=== PATIENT | female | born 1960 | race Caucasian/White ===

== ENCOUNTER 2017-07-30 08:52 | Emergency (ER) | payer BC ==
[2017-07-30] MEDS ORDERED: Nitroglycerin 2% Oint 1 GM UD Packet TOP ONE (09:19)
--- NOTE | 2017-07-30 09:31 | EDM.PDOC ---
ED HPI GENERAL MEDICAL PROBLEM - General Stated Complaint: DIZZY/LIGHT HEADED Time Seen by Provider: 07/30/17 09:08 - History of Present Illness INITIAL COMMENTS - FREE TEXT/NARRATIVE: Patient presents to emergency room this morning with complaints of dizziness, not feeling well. Did have a lower tooth pulled on the left side yesterday recently finished a dose of clindamycin. Her symptoms are otherwise pretty vague. She has low grade fever, vital signs are stable with the exception of elevated blood pressure which on presentation is 170/110. Medical history includes hypertension diabete 2. She denies chest pain, shortness of breath, denies abdominal pain, having regular bowel and voiding habits no blood has been seen in stools or urine. Overall her symptoms are very vague and generalized with no additional complaints she quit smoking almost 2 years ago drinks rare alcohol and does not use illicit street drugs. Onset: Today, Gradual - Related Data Allergies Allergy/AdvReac Type Severity Reaction Status Date / Time bupropion HCl [From Zyban] Allergy Hives Verified 06/21/14 07:09 Home Meds: Home Meds Aspirin [Halfprin] 1 tab PO DAILY 06/19/14 [History] Omeprazole [Prilosec] 1 tab PO DAILY 06/19/14 [History] metFORMIN [Glucophage XR] 1 tab PO DAILY 06/19/14 [History] Hydrochlorothiazide [Hydrochlorothiazide] 50 mg DAILY 07/30/17 [History] Lisinopril [Lisinopril] 5 mg DAILY 07/30/17 [History] Metoprolol Succinate [Metoprolol Succinate] 25 mg DAILY 07/30/17 [History] Social & Family History - Tobacco Use Smoking Status *Q: Current Every Day Smoker Years of Tobacco use: 25 Used Tobacco, but Quit: No Second Hand Smoke Exposure: Yes - Alcohol Use Days Per Week of Alcohol Use: 0 - Recreational Drug Use Recreational Drug Use: No ED ROS GENERAL - Review of Systems Review Of Systems: See Below Constitutional: Reports: No Symptoms HEENT: Reports: No Symptoms Respiratory: Reports: No Symptoms Cardiovascular: Reports: No Symptoms Endocrine: Reports: No Symptoms GI/Abdominal: Reports: No Symptoms : Reports: No Symptoms Musculoskeletal: Reports: No Symptoms Skin: Reports: No Symptoms Neurological: Reports: Dizziness Psychiatric: Reports: No Symptoms Hematologic/Lymphatic: Reports: No Symptoms Immunologic: Reports: No Symptoms ED EXAM, GENERAL - Physical Exam Exam: See Below Exam Limited By: No Limitations General Appearance: Alert, WD/WN, No Apparent Distress Eye Exam: Bilateral Eye: EOMI, PERRL Ears: Normal TMs Head: Atraumatic, Normocephalic Neck: Normal Inspection, Tender Lateral Respiratory/Chest: No Respiratory Distress, Lungs Clear, Normal Breath Sounds Cardiovascular: Normal Peripheral Pulses, Regular Rate, Rhythm GI/Abdominal: Normal Bowel Sounds, Soft, Non-Tender Neurological: Alert, Oriented, CN II-XII Intact, Normal Cognition, Normal Gait, Normal Reflexes, No Motor/Sensory Deficits Psychiatric: Normal Affect, Normal Mood Skin Exam: Warm, Dry, Intact, Normal Color, No Rash Course - Orders/Labs/Meds Orders: Active Orders 24 hr Category Date Time Status EKG Documentation Completion [RC] ROUTINE Care 07/30/17 09:19 Ordered Labs: Laboratory Tests 07/30/17 07/30/17 07/30/17 Range/Units 09:30 09:30 09:30 WBC 5.4 (4.0-10.0) x10^3/uL RBC 4.54 (4.00-5.50) x10^6/uL Hgb 13.7 (12.0-16.0) g/dL Hct 41.5 (33.0-47.0) % MCV 91.4 (78.0-93.0) fL MCH 30.2 (26.0-32.0) pg MCHC 33.0 (32.0-36.0) g/dL RDW Coeff of Sandy 13.4 (10.0-15.0) % Plt Count 333 (130-400) x10^3/uL Neut % (Auto) 54.3 (50.0-80.0) % Lymph % (Auto) 28.6 (25.0-50.0) % [place] % (Auto) 10.0 (2.0-11.0) % Eos % (Auto) 6.5 H (0.0-4.0) % Baso % (Auto) 0.6 (0.2-1.2) % PT 10.0 (9.8-11.8) SEC INR 0.9 L (2.0-3.5) Sodium 138 (136-145) mmol/L Potassium 4.0 (3.5-5.1) mmol/L Chloride 102 (98-107) mmol/L Carbon Dioxide 28 (21-32) mmol/L BUN 11 (7-18) mg/dL Creatinine 0.6 (0.55-1.02) mg/dL Est Cr Clr Drug Dosing TNP Estimated GFR (MDRD) > 60 Glucose 174 H (74-106) mg/dL Calcium 9.2 (8.5-10.1) mg/dL Corrected Calcium 9.52 (8.5-10.1) mg/dL Total Bilirubin 0.9 (0.2-1.0) mg/dL AST 34 (15-37) U/L ALT 100 H (14-59) U/L Alkaline Phosphatase 119 H (46-116) U/L Creatine Kinase 65 (26-192) U/L Creatine Kinase Index 2.6 (0.0-4.0) % CK-MB (CK-2) 1.7 (0.0-3.6) ng/mL Troponin I < 0.017 (<=0.056) ng/mL NT-Pro-B Natriuret Pep 30 (<=125) pg/mL Total Protein 7.8 (6.4-8.2) g/dL Albumin 3.6 (3.4-5.0) g/dL Globulin 4.2 Albumin/Globulin Ratio 0.86 Urine Color (YELLOW) Urine Appearance (CLEAR) Urine pH (5.0-8.0) Ur Specific [place] Urine Protein (NEGATIVE) mg/dL Urine Glucose (UA) (NEGATIVE) mg/dL Urine Ketones (NEGATIVE) mg/dL Urine Occult Blood (NEGATIVE) Urine Nitrite (NEGATIVE) Urine Bilirubin (NEGATIVE) Urine Urobilinogen (0.2) EU/dL Ur Leukocyte Esterase (NEGATIVE) Urine RBC (NOT SEEN) /HPF Urine WBC (NOT SEEN) /HPF Ur Squamous Epith Cells (NEGATIVE) /HPF Urine Bacteria (NEGATIVE) /HPF Urine Mucus (NEGATIVE) /LPF 07/30/17 Range/Units 10:20 WBC (4.0-10.0) x10^3/uL RBC (4.00-5.50) x10^6/uL Hgb (12.0-16.0) g/dL Hct (33.0-47.0) % MCV (78.0-93.0) fL MCH (26.0-32.0) pg MCHC (32.0-36.0) g/dL RDW Coeff of Sandy (10.0-15.0) % Plt Count (130-400) x10^3/uL Neut % (Auto) (50.0-80.0) % Lymph % (Auto) (25.0-50.0) % [place] % (Auto) (2.0-11.0) % Eos % (Auto) (0.0-4.0) % Baso % (Auto) (0.2-1.2) % PT (9.8-11.8) SEC INR (2.0-3.5) Sodium (136-145) mmol/L Potassium (3.5-5.1) mmol/L Chloride (98-107) mmol/L Carbon Dioxide (21-32) mmol/L BUN (7-18) mg/dL Creatinine (0.55-1.02) mg/dL Est Cr Clr Drug Dosing Estimated GFR (MDRD) Glucose (74-106) mg/dL Calcium (8.5-10.1) mg/dL Corrected Calcium (8.5-10.1) mg/dL Total Bilirubin (0.2-1.0) mg/dL AST (15-37) U/L ALT (14-59) U/L Alkaline Phosphatase (46-116) U/L Creatine Kinase (26-192) U/L Creatine Kinase Index (0.0-4.0) % CK-MB (CK-2) (0.0-3.6) ng/mL Troponin I (<=0.056) ng/mL NT-Pro-B Natriuret Pep (<=125) pg/mL Total Protein (6.4-8.2) g/dL Albumin (3.4-5.0) g/dL Globulin Albumin/Globulin Ratio Urine Color Yellow (YELLOW) Urine Appearance Slightly cloudy H (CLEAR) Urine pH 5.5 (5.0-8.0) Ur Specific [place] 1.010 Urine Protein Negative (NEGATIVE) mg/dL Urine Glucose (UA) Negative (NEGATIVE) mg/dL Urine Ketones Negative (NEGATIVE) mg/dL Urine Occult Blood Negative (NEGATIVE) Urine Nitrite Negative (NEGATIVE) Urine Bilirubin Negative (NEGATIVE) Urine Urobilinogen 0.2 (0.2) EU/dL Ur Leukocyte Esterase Negative (NEGATIVE) Urine RBC 0-5 (NOT SEEN) /HPF Urine WBC 0-5 (NOT SEEN) /HPF Ur Squamous Epith Cells Few H (NEGATIVE) /HPF Urine Bacteria Few H (NEGATIVE) /HPF Urine Mucus Few H (NEGATIVE) /LPF Meds: Medications Discontinued Medications Generic Name Dose Route Start Last Admin Trade Name Adal PRN Reason Stop Dose Admin Nitroglycerin 1 gm 07/30/17 09:19 07/30/17 09:51 Nitro-Bid 2% TOP 07/30/17 09:20 1 gm ONETIME ONE Administration - Re-Assessments/Exams Free Text/Narrative Re-Assessment/Exam: 07/30/17 11:05 Patient was given topical nitroglycerin which did reduce her blood pressure down to 158/88. She currently only takes 5 mg of lisinopril which I am going to increase to 10 mg daily. All of her labs have been within normal limits today, EKG was normal, cardiac enzymes were nonelevated Departure - Departure Time of Disposition: 11:07 Disposition: Home, Self-Care 01 Condition: Good Clinical Impression: Hypertension - Discharge Information Instructions: Hypertension, [id number] Additional Instructions: I saw you today for hypertensive urgency. I have increased your lisinopril to 10 mg daily. I am not writing a new prescription for that as I wish for you to follow up with your primary care provider. Please continue to be well hydrated. I'm also prescribing you hydrocodone to take for your tooth pain. Please take this as prescribed. Please call us to have any questions or concerns. - Problem List & Annotations (1) Hypertension SNOMED Code(s): 47812893 Code(s): I10 - ESSENTIAL (PRIMARY) HYPERTENSION Status: Acute Priority: Low Current Visit: Yes Qualifiers: Hypertension type: unspecified Qualified Code(s): I10 - Essential (primary ) hypertension - Problem List Review Problem List Initiated/Reviewed/Updated: Yes - My Orders Last 24 Hours: My Active Orders 07/30/17 09:19 EKG Documentation Completion [RC] ROUTINE - Assessment/Plan Last 24 Hours: My Active Orders 07/30/17 09:19 EKG Documentation Completion [RC] ROUTINE Assessment:: hypertension Plan: I saw you today for hypertensive urgency. I have increased your lisinopril to 10 mg daily. I am not writing a new prescription for that as I wish for you to follow up with your primary care provider. Please continue to be well hydrated. I'm also prescribing you hydrocodone to take for your tooth pain. Please take this as prescribed. Please call us to have any questions or concerns.
[2017-07-30 10:11] LABS: CHLORIDE,CL 102 mmol/L (98-107); SODIUM,NA 138 mmol/L (136-145)
[2017-07-30 11:39] VITALS: BP 150/88
== END 2017-07-30 11:20 | disposition home or self-care (01) ==
LOC: VM.ED 08:52
DX: I10 Essential (primary) hypertension (principal); F17.210 Nicotine dependence, cigarettes, uncomplicated; Z88.8 Allergy status to other drugs, medicaments and biological substances; Z79.82 Long term (current) use of aspirin; Z79.84 Long term (current) use of oral hypoglycemic drugs; Z79.899 Other long term (current) drug therapy
CPT/HCPCS: 36415; 80053; 81001; 82550; 82553; 83880; 84484; 85025; 85610; 93005; 99284; A9270

== ENCOUNTER 2020-12-14 08:29 | Emergency (ER) | payer BC ==
[2020-12-14] MEDS ORDERED: Sodium Chloride 0.9% 10 ML Syringe FLUSH PRN (08:54)
[2020-12-14] MEDS ORDERED: Aspirin 81 MG Tab.Chew PO ONE (08:56)
--- NOTE | 2020-12-14 09:18 | CR ---
[id number] RAD/RAD Chest PA or AP 1V EXAM: RAD Chest PA or AP 1V INDICATION: CHEST PAIN. COMPARISON: None. DISCUSSION: Cardiomediastinal silhouette is normal in size and contour. No infiltrate, effusion, pneumothorax, or edema. IMPRESSION: No acute cardiopulmonary abnormality. Bryan De Leon DO 12/14/20 0917 Thank you for allowing us to participate in the care of your patient.
[2020-12-14 09:37] LABS: CHLORIDE,CL 103 mmol/L (98-107); SODIUM,NA 141 mmol/L (136-145)
--- NOTE | 2020-12-14 09:41 | EDM.PDOC ---
ED HPI GENERAL MEDICAL PROBLEM - General Stated Complaint: CHEST PAIN Time Seen by Provider: 12/14/20 08:40 Source of Information: Reports: Patient History Limitations: Reports: No Limitations - History of Present Illness INITIAL COMMENTS - FREE TEXT/NARRATIVE: Pt. presents to ER with complaints of intermittent chest pain. Pt. states that she started experiencing the discomfort intermittently yesterday. She states that the discomfort is substernal, respirophasic, and sharp in nature. Pt. also complains of some mild shortness of breath when the discomfort is present. She states that she becomes diaphoretic at onset of discomfort. Denies any fever or chills. No nausea, vomiting, or diarrhea. No abdominal pain. No hemoptysis. No melena, hematochezia, or hematemesis. Onset Date: 12/13/20 Location: Reports: Chest, Generalized Associated Symptoms: Reports: Chest Pain, Diaphoresis, Shortness of Breath. Denies: Cough, cough w sputum, Fever/Chills, Nausea/Vomiting, Weakness Chest Pain Score (Numeric/FACES): 3 - Related Data Allergies Allergy/AdvReac Type Severity Reaction Status Date / Time bupropion HCl [From [place] Ultrasound] Allergy Hives Verified 12/14/20 09:24 Home Meds: Home Meds Aspirin [Halfprin] 1 tab PO DAILY 06/19/14 [History] Omeprazole [Prilosec] 20 mg PO DAILY 06/19/14 [History] metFORMIN [Glucophage XR] 1,000 mg PO BID 06/19/14 [History] hydroCHLOROthiazide [Hydrochlorothiazide] 25 mg PO DAILY 07/30/17 [History] Liraglutide [Victoza 3-Jesus] 1.2 mg SQ DAILY 12/14/20 [History] Metoprolol Tartrate 37.5 mg PO BID 12/14/20 [History] Ondansetron [Zofran ODT] 4 mg PO Q6H PRN 12/14/20 [History] Rosuvastatin [Crestor] 5 mg PO DAILY 12/14/20 [History] amLODIPine [Norvasc] 5 mg PO DAILY 12/14/20 [History] lisinopriL [Lisinopril] 40 mg PO DAILY 12/14/20 [History] Past Medical History HEENT History: Reports: Cataract Cardiovascular History: Reports: High Cholesterol, Hypertension Gastrointestinal History: Reports: GERD Endocrine/Metabolic History: Reports: Diabetes, Type II - Past Surgical History HEENT Surgical History: Reports: Cataract Surgery ED ROS GENERAL - Review of Systems Review Of Systems: See Below Constitutional: Reports: No Symptoms HEENT: Reports: No Symptoms Respiratory: Reports: Shortness of Breath, Pleuritic Chest Pain. Denies: Cough, Sputum, Hemoptysis Cardiovascular: Reports: Chest Pain, Dyspnea on Exertion Endocrine: Reports: No Symptoms GI/Abdominal: Reports: No Symptoms : Reports: No Symptoms Musculoskeletal: Reports: No Symptoms Skin: Reports: Diaphoresis Neurological: Reports: No Symptoms Psychiatric: Reports: No Symptoms Hematologic/Lymphatic: Reports: No Symptoms Immunologic: Reports: No Symptoms ED EXAM, GENERAL - Physical Exam Exam: See Below Exam Limited By: No Limitations General Appearance: Alert, WD/WN, No Apparent Distress Throat/Mouth: Normal Inspection, Normal Lips, Normal Voice, No Airway Compromise Head: Atraumatic, Normocephalic Neck: Normal Inspection, Supple, Non-Tender Respiratory/Chest: No Respiratory Distress, Lungs Clear, Normal Breath Sounds, No Accessory Muscle Use, Chest Non-Tender Cardiovascular: Normal Peripheral Pulses, Regular Rate, Rhythm, No Edema, No JVD GI/Abdominal: Soft, Non-Tender, No Distention, No Mass (Female) Exam: Deferred Rectal (Female) Exam: Deferred Back Exam: Normal Inspection, Full Range of Motion Extremities: Normal Inspection, Normal Range of Motion, Non-Tender, No Pedal Edema, Normal Capillary Refill Neurological: Alert, Oriented, CN II-XII Intact, Normal Cognition, Normal Gait, Normal Reflexes, No Motor/Sensory Deficits Psychiatric: Normal Affect, Normal Mood Skin Exam: Warm, Dry, Intact, Normal Color, No Rash #1 Interpretation Rhythm: NSR [place]: Normal P-Wave: Present QRS: Normal ST-T: Normal QT: Normal Course - Vital Signs Last Recorded V/S: Last Vital Signs Temp 36.8 C 12/14/20 08:35 Pulse 84 12/14/20 08:35 Resp 16 12/14/20 08:35 BP 148/81 H 12/14/20 08:35 Pulse Ox 95 12/14/20 08:35 - Orders/Labs/Meds Orders: Active Orders 24 hr Category Date Time Status EKG Documentation Completion [RC] STAT Care 12/14/20 08:54 Active Sodium Chloride 0.9% [Saline Flush] Med 12/14/20 08:54 Active 10 ml FLUSH ASDIRECTED PRN Peripheral IV Insertion Adult [OM.PC] Routine Oth 12/14/20 08:55 Ordered Medication Orders Sodium Chloride (Saline Flush) 10 ml FLUSH ASDIRECTED PRN PRN Reason: Keep Vein Open Labs: Laboratory Tests 12/14/20 12/14/20 12/14/20 Range/Units 08:50 08:50 08:50 WBC 4.2 (4.0-10.0) x10^3/uL RBC 4.48 (4.00-5.50) x10^6/uL Hgb 13.0 (12.0-16.0) g/dL Hct 40.0 (33.0-47.0) % MCV 89.3 (78.0-93.0) fL MCH 29.0 (26.0-32.0) pg MCHC 32.5 (32.0-36.0) g/dL RDW Coeff of Sandy 13.9 (10.0-15.0) % Plt Count 343 (130-400) x10^3/uL Neut % (Auto) 46.8 L (50.0-80.0) % Lymph % (Auto) 39.0 (25.0-50.0) % [place] % (Auto) 9.6 (2.0-11.0) % Eos % (Auto) 3.6 (0.0-4.0) % Baso % (Auto) 1.0 (0.2-1.2) % PT 10.4 (9.9-12.5) SEC INR 0.9 L (2.0-3.5) APTT (25.6-32.8) SEC D-Dimer, Quantitative 0.42 (<=0.58) mg/LFEU Sodium 141 (136-145) mmol/L Potassium 4.0 (3.5-5.1) mmol/L Chloride 103 (98-107) mmol/L Carbon Dioxide 28 (21-32) mmol/L Anion Gap 14.0 (5-15) mmol/L BUN 13 (7-18) mg/dL Creatinine 0.8 (0.55-1.02) mg/dL Est Cr Clr Drug Dosing TNP Estimated GFR (MDRD) > 60 Glucose 163 H (74-106) mg/dL Calcium 9.2 (8.5-10.1) mg/dL Corrected Calcium 9.36 (8.5-10.1) mg/dL Magnesium 1.9 (1.8-2.4) mg/dL Total Bilirubin 1.0 (0.2-1.0) mg/dL AST 28 (15-37) U/L ALT 61 H (14-59) U/L Alkaline Phosphatase 87 (46-116) U/L Troponin I < 0.017 (<=0.056) ng/mL C-Reactive Protein < 0.2 (<=0.9) mg/dL NT-Pro-B Natriuret Pep 22 (<=125) pg/mL Total Protein 8.1 (6.4-8.2) g/dL Albumin 3.8 (3.4-5.0) g/dL Globulin 4.3 Albumin/Globulin Ratio 0.88 TSH, Ultra Sensitive 1.315 (0.358-3.74) uIU/mL 12/14/20 Range/Units 08:50 WBC (4.0-10.0) x10^3/uL RBC (4.00-5.50) x10^6/uL Hgb (12.0-16.0) g/dL Hct (33.0-47.0) % MCV (78.0-93.0) fL MCH (26.0-32.0) pg MCHC (32.0-36.0) g/dL RDW Coeff of [place] (10.0-15.0) % Plt Count (130-400) x10^3/uL Neut % (Auto) (50.0-80.0) % Lymph % (Auto) (25.0-50.0) % [place] % (Auto) (2.0-11.0) % Eos % (Auto) (0.0-4.0) % Baso % (Auto) (0.2-1.2) % PT (9.9-12.5) SEC INR (2.0-3.5) APTT 24.5 L (25.6-32.8) SEC D-Dimer, Quantitative (<=0.58) mg/LFEU Sodium (136-145) mmol/L Potassium (3.5-5.1) mmol/L Chloride (98-107) mmol/L Carbon Dioxide (21-32) mmol/L Anion Gap (5-15) mmol/L BUN (7-18) mg/dL Creatinine (0.55-1.02) mg/dL Est Cr Clr Drug Dosing Estimated GFR (MDRD) Glucose (74-106) mg/dL Calcium (8.5-10.1) mg/dL Corrected Calcium (8.5-10.1) mg/dL Magnesium (1.8-2.4) mg/dL Total Bilirubin (0.2-1.0) mg/dL AST (15-37) U/L ALT (14-59) U/L Alkaline Phosphatase (46-116) U/L Troponin I (<=0.056) ng/mL C-Reactive Protein (<=0.9) mg/dL NT-Pro-B Natriuret Pep (<=125) pg/mL Total Protein (6.4-8.2) g/dL Albumin (3.4-5.0) g/dL Globulin Albumin/Globulin Ratio TSH, Ultra Sensitive (0.358-3.74) uIU/mL Meds: Medications Generic Name Dose Route Start Last Admin Trade Name Freq PRN Reason Stop Dose Admin Sodium Chloride 10 ml 12/14/20 08:54 Saline Flush FLUSH ASDIRECTED PRN Keep Vein Open Discontinued Medications Generic Name Dose Route Start Last Admin Trade Name Freq PRN Reason Stop Dose Admin Aspirin 324 mg 12/14/20 08:56 Aspirin PO 12/14/20 08:57 ONETIME ONE - Radiology Interpretation Free Text/Narrative:: chest x-ray negative for acute pathology Departure - Departure Time of Disposition: 10:05 Disposition: Home, Self-Care 01 Clinical Impression: Atypical chest pain - Discharge Information Instructions: Nonspecific Chest Pain, Adult, [id number] Referrals: Aubrie Lyman MD [Primary Care Provider] - Forms: ED Department Discharge Additional Instructions: Home to rest. Off work today. Ibuprofen as needed for discomfort. Recheck in clinic in 7-10 days, sooner if not gradually improving. Sepsis Event Note (ED) - Evaluation Sepsis Screening Result: No Definite Risk - Focused Exam Vital Signs: Vital Signs Temp Pulse Resp BP Pulse Ox 12/14/20 08:35 36.8 C 84 16 148/81 H 95 - My Orders Last 24 Hours: My Active Orders 12/14/20 08:54 EKG Documentation Completion [RC] STAT Sodium Chloride 0.9% [Saline Flush] 10 ml FLUSH ASDIRECTED PRN 12/14/20 08:55 Peripheral IV Insertion Adult [OM.PC] Routine - Assessment/Plan Last 24 Hours: My Active Orders 12/14/20 08:54 EKG Documentation Completion [RC] STAT Sodium Chloride 0.9% [Saline Flush] 10 ml FLUSH ASDIRECTED PRN 12/14/20 08:55 Peripheral IV Insertion Adult [OM.PC] Routine Plan: Labs, including troponin and d dimer were all within normal limits. EKG was normal. No pathology noted on chest xray. Discomfort is respirophasic. Symptoms more consistent with musculoskeletal or pleural etiology. Pt. refuses to start steroids. Advised ibuprofen 600mg every 6 hours as needed for the pain. If she is still having discomfort or it if is worsening, she should follow-up in clinic for further evaluation/CT of chest. All questions were answered.
[2020-12-14 09:52] VITALS: BP 148/81; PULSE 84
== END 2020-12-14 10:35 | disposition home or self-care (01) ==
LOC: VM.ED 08:29
DX: R07.89 Other chest pain (principal); R07.81 Pleurodynia; R07.2 Precordial pain; R06.02 Shortness of breath; R61 Generalized hyperhidrosis; I10 Essential (primary) hypertension; E78.00 Pure hypercholesterolemia, unspecified; K21.9 Gastro-esophageal reflux disease without esophagitis; E11.9 Type 2 diabetes mellitus without complications; Z88.8 Allergy status to other drugs, medicaments and biological substances; Z79.82 Long term (current) use of aspirin; Z79.899 Other long term (current) drug therapy
CPT/HCPCS: 71045; 80053; 83735; 83880; 84443; 84484; 85025; 85379; 85610; 85730; 86140; 93005; 93010; 99284; 99285-25; A9270-GY